=== PATIENT | female | born 1985 | race Caucasian/White ===

== ENCOUNTER 2020-01-27 15:57 | Emergency (ER) | payer MEDICAID ==
[2020-01-27] MEDS ORDERED: Sodium Chloride 0.9% 10 ML Syringe FLUSH PRN (16:31)
--- NOTE | 2020-01-27 17:04 | EDM.PDOC ---
ED HPI GENERAL MEDICAL PROBLEM - General Chief Complaint: Chest Pain Stated Complaint: CHEST PAIN - NEW PACEMAKER Time Seen by Provider: 01/27/20 16:31 Source of Information: Reports: Patient, RN Notes Reviewed History Limitations: Reports: No Limitations - History of Present Illness INITIAL COMMENTS - FREE TEXT/NARRATIVE: Patient is a 34-year-old female who presents to the ED for evaluation of her chest pain. 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 She states that she lives here, but she came to [place] to visit family, and they had some car troubles and now they cannot get back to [place] at this time. Patient states that she has chest pressure/pain, with some radiation to her shoulder. She states that it feels similar to the times where they are doing pacemaker checks, and she states she feels her heart racing, of note her pulse is 64 at the time of exam today. Patient denies any other sick-like symptoms, fever/chills, cough/shortness of breath that is not normal for her as she states she has COPD. Patient complained of some mild nausea today when the chest pressure was at its worst, she states she got dizzy. She did not vomit. Patient has unsure what brand her pacemaker is, but states she has a [facility] card, so she thinks that it is a [employer] pacemaker. Mid-Sternal Chest Pain Score (Numeric/FACES): 7 - Related Data Allergies Allergy/AdvReac Type Severity Reaction Status Date / Time morphine Allergy Anxiety Verified 01/27/20 16:23 Home Meds: Home Meds ARIPiprazole [Abilify Maintena] 400 mg IM ASDIRECTED 01/27/20 [History] Albuterol Sulfate [Albuterol Sulfate Hfa] 2 puff INH Q4HR PRN 01/27/20 [History] Aspirin 162 mg PO DAILY 01/27/20 [History] Naproxen 500 mg PO BID 01/27/20 [History] busPIRone [Buspar] 15 mg PO TID 01/27/20 [History] clonazePAM [Klonopin] 1 mg PO QID 01/27/20 [History] tiZANidine [Zanaflex] 2 mg PO BID 01/27/20 [History] Past Medical History Cardiovascular History: Reports: Pacemaker ([employer] pacemaker, newly placed beginning of december 2019, cloth desizing range tender in [place]) Respiratory History: Reports: COPD Genitourinary History: Reports: UTI, Recurrent WARPER FIXER History: Reports: Other (See Below) Other WARPER FIXER History: hysterectomy Neurological History: Reports: Other (See Below) Other Neuro History: 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 Psychiatric History: Reports: Anxiety, Bipolar, Depression, Schizophrenia Endocrine/Metabolic History: Reports: Obesity/BMI 30+ Oncologic (Cancer) History: Reports: Ovarian, Uterine - Past Surgical History HEENT Surgical History: Reports: Oral Surgery, Tonsillectomy GI Surgical History: Reports: Cholecystectomy Musculoskeletal Surgical History: Reports: Other (See Below) Other Musculoskeletal Surgeries/Procedures:: reconstructive thumb surgery. Dermatological Surgical History: Reports: Other (See Below) Social & Family History - Tobacco Use Smoking Status *Q: Current Every Day Smoker Years of Tobacco use: 28 Packs/Tins Daily: 0.5 ED ROS GENERAL - Review of Systems Review Of Systems: Comprehensive ROS is negative, except as noted in HPI. ED EXAM, GENERAL - Physical Exam Exam: See Below Exam Limited By: No Limitations General Appearance: Alert, WD/WN, No Apparent Distress, Anxious Head: Atraumatic, Normocephalic Neck: Normal Inspection Respiratory/Chest: No Respiratory Distress, Lungs Clear, Normal Breath Sounds, No Accessory Muscle Use, Chest Non-Tender Cardiovascular: Normal Peripheral Pulses, Regular Rate, Rhythm, No Edema, No Murmur Peripheral Pulses: 3+: Radial (L), Radial (R) Extremities: Normal Inspection, Normal Capillary Refill Neurological: Alert, Oriented, Normal Cognition, No Motor/Sensory Deficits Psychiatric: Normal Affect, Normal Mood Skin Exam: Warm, Dry, Intact, Normal Color, No Rash EKG INTERPRETATION EKG Date: 01/27/20 Time: 16:20 Rhythm: NSR Rate (Beats/Min): 72 Rock: Normal P-Wave: Present QRS: Normal ST-T: Normal QT: Normal Comparison: NA - No Prior EKG EKG Interpretation Comments: EKG demonstrates atrial paced complexes, but no obvious ST change or ischemic change noted. Reviewed by myself and Dr. Ramirez. Course - Vital Signs Last Recorded V/S: Last Vital Signs Temp 98.4 F 01/27/20 16:23 Pulse 64 01/27/20 16:23 Resp 16 01/27/20 16:23 BP 127/81 01/27/20 16:23 Pulse Ox 94 L 01/27/20 16:23 - Orders/Labs/Meds Orders: Active Orders 24 hr Category Date Time Status EKG Documentation Completion [RC] STAT Care 01/27/20 16:31 Ordered Peripheral IV Care [RC] . DIRECTED Care 01/27/20 16:31 Ordered Chest 2V [CR] Stat Exams 01/27/20 16:31 Ordered CBC WITH AUTO DIFF [HEME] Stat Lab 01/27/20 16:31 Ordered INR,PT,PROTHROMBIN TIME [COAG] Stat Lab 01/27/20 16:31 Ordered PRO B-TYPE NATRIUR PEPT,BNPPRO [CHEM] Stat Lab 01/27/20 16:31 Ordered PTT,PARTIAL THROMBOPLSTIN TIME [COAG] Stat Lab 01/27/20 16:31 Ordered Sodium Chloride 0.9% [Saline Flush] Med 01/27/20 16:31 Ordered 10 ml FLUSH ASDIRECTED PRN Peripheral IV Insertion Adult [OM.PC] Stat Oth 01/27/20 16:31 Ordered Medication Orders Sodium Chloride (Saline Flush) 10 ml FLUSH ASDIRECTED PRN PRN Reason: Keep Vein Open Labs: Laboratory Tests 01/27/20 01/27/20 Range/Units 17:00 17:00 WBC 10.59 H (3.98-10.04) K/mm3 RBC 4.97 (3.98-5.22) M/mm3 Hgb 14.5 (11.2-15.7) gm/dl Hct 44.3 (34.1-44.9) % MCV 89.1 (79.4-94.8) fl MCH 29.2 (25.6-32.2) pg MCHC 32.7 (32.2-35.5) g/dl RDW Std Deviation 45.3 (36.4-46.3) fL Plt Count 280 (182-369) K/mm3 MPV 9.5 (9.4-12.3) fl Neut % (Auto) 58.0 (34.0-71.1) % Lymph % (Auto) 29.1 (19.3-51.7) % [place] % (Auto) 8.6 (4.7-12.5) % Eos % (Auto) 3.3 (0.7-5.8) Baso % (Auto) 0.8 (0.1-1.2) % Neut # (Auto) 6.15 H (1.56-6.13) K/mm3 Lymph # (Auto) 3.08 (1.18-3.74) K/mm3 [place] # (Auto) 0.91 H (0.24-0.36) K/mm3 Eos # (Auto) 0.35 (0.04-0.36) K/mm3 Baso # (Auto) 0.08 (0.01-0.08) K/mm3 Sodium 142 (136-145) mEq/L Potassium 3.9 (3.5-5.1) mEq/L Chloride 107 (98-107) mEq/L Carbon Dioxide 24 (21-32) mEq/L Anion Gap 14.9 (5-15) BUN 17 (7-18) mg/dL Creatinine 0.8 (0.55-1.02) mg/dL Est Cr Clr Drug Dosing 88.32 mL/min Estimated GFR (MDRD) > 60 (>60) mL/min BUN/Creatinine Ratio 21.3 H (14-18) Glucose 98 (74-106) mg/dL Calcium 9.1 (8.5-10.1) mg/dL Magnesium 2.1 (1.8-2.4) mg/dl Total Bilirubin 0.2 (0.2-1.0) mg/dL AST 16 (15-37) U/L ALT 18 (14-59) U/L Alkaline Phosphatase 81 (46-116) U/L Troponin I < 0.017 (0.00-0.056) ng/mL Total Protein 7.1 (6.4-8.2) g/dl Albumin 3.7 (3.4-5.0) g/dl Globulin 3.4 gm/dL Albumin/Globulin Ratio 1.1 (1-2) Meds: Medications Generic Name Dose Route Start Last Admin Trade Name Freq PRN Reason Stop Dose Admin Sodium Chloride 10 ml 01/27/20 16:31 Saline Flush FLUSH ASDIRECTED PRN Keep Vein Open - Re-Assessments/Exams Free Text/Narrative Re-Assessment/Exam: 01/27/20 17:17 Patient presents to the ED for the evaluation of her chest pain. Patient will have cardiology work-up to rule out OR in nature. 01/27/20 17:46 Patient's laboratory evaluation demonstrates no focal abnormalities, her troponin is undetectably low. Patient did state that she was having issues contacting her cloth desizing range tender regarding her chest pain, I will have her direct her questions to her cloth desizing range tender regarding the pacemaker, as it seems to be working appropriately, we do not have a system to check this. Departure - Departure Time of Disposition: 17:47 Disposition: Home, Self-Care 01 Condition: Good Clinical Impression: Pressure in chest, Atypical chest pain Instructions: Nonspecific Chest Pain, Adult, [id number] Referrals: PCP,Unknown [Primary Care Provider] - Forms: ED Department Discharge Additional Instructions: You were evaluated in the ER today regarding your chest pressure/pain. EKG was taken, along with laboratory evaluation, and everything appears to be within normal limits, you are not suffering from a heart attack at today's visit. Cardiology in [place] was not able to shed much light on on your chest pain as they do not have your cardiac records, so they were not able to provide much for further recommendations. It is highly recommend that you try to get a hold of your cloth desizing range tender back in [place] for further management. You may try Tylenol or ibuprofen for pain management, every 6 hours as needed do not exceed 4000 mg Tylenol or 3200 mg ibuprofen in a 24-hour time span. If you are not already doing so, taking a daily aspirin would be good for your heart health, and I would recommend that you do this. Please return to the ER at any time if your symptoms change or worsen. Sepsis Event Note (ED) - Evaluation Sepsis Screening Result: No Definite Risk - Focused Exam Vital Signs: Vital Signs Temp Pulse Resp BP Pulse Ox 01/27/20 16:23 98.4 F 64 16 127/81 94 L - My Orders Last 24 Hours: My Active Orders 01/27/20 16:31 EKG Documentation Completion [RC] STAT Peripheral IV Care [RC] . DIRECTED Chest 2V [CR] Stat CBC WITH AUTO DIFF [HEME] Stat INR,PT,PROTHROMBIN TIME [COAG] Stat PRO B-TYPE NATRIUR PEPT,BNPPRO [CHEM] Stat PTT,PARTIAL THROMBOPLSTIN TIME [COAG] Stat Sodium Chloride 0.9% [Saline Flush] 10 ml FLUSH ASDIRECTED PRN Peripheral IV Insertion Adult [OM.PC] Stat - Assessment/Plan Last 24 Hours: My Active Orders 01/27/20 16:31 EKG Documentation Completion [RC] STAT Peripheral IV Care [RC] . DIRECTED Chest 2V [CR] Stat CBC WITH AUTO DIFF [HEME] Stat INR,PT,PROTHROMBIN TIME [COAG] Stat PRO B-TYPE NATRIUR PEPT,BNPPRO [CHEM] Stat PTT,PARTIAL THROMBOPLSTIN TIME [COAG] Stat Sodium Chloride 0.9% [Saline Flush] 10 ml FLUSH ASDIRECTED PRN Peripheral IV Insertion Adult [OM.PC] Stat
[2020-01-27] MEDS ORDERED: HYDROmorphone 1 MG/ML Syringe IM ONE (17:55)
--- NOTE | 2020-01-27 18:22 | CR ---
Chest: 2 views of the chest were obtained. Comparison: No previous chest imaging. Heart size slightly prominent. Upper mediastinum is normal. Lungs are clear with no acute parenchymal change. Pacemaker is noted. Minimal scarring is noted off the left cardiac apex. Impression: 1. Findings as noted above. 2. Nothing acute is appreciated. Diagnostic code #2 This report was dictated in MDT
== END 2020-01-27 18:33 | disposition home or self-care (01) ==
LOC: JD.ED 15:57
DX: R07.89 Other chest pain (principal); F17.210 Nicotine dependence, cigarettes, uncomplicated; J44.9 Chronic obstructive pulmonary disease, unspecified; F31.9 Bipolar disorder, unspecified; F41.9 Anxiety disorder, unspecified; F20.9 Schizophrenia, unspecified; E66.9 Obesity, unspecified; Z68.33 Body mass index [BMI] 33.0-33.9, adult; Z79.82 Long term (current) use of aspirin; Z79.899 Other long term (current) drug therapy; Z88.5 Allergy status to narcotic agent
CPT/HCPCS: 36415; 71046; 80053; 83735; 83880; 84484; 85025; 85610; 85730; 93005; 96372; 99285; J1170; 93010; 99283